=== PATIENT | female | born 1955 | race Caucasian/White ===

== ENCOUNTER 2020-01-29 18:25 | Emergency (ER) | payer BC, SELFPAY ==
[2020-01-29 19:05] VITALS: BP 175/85; PULSE 97; RESP 18; TEMP 36.6; O2SAT 97; BMI 35.4
--- NOTE | 2020-01-29 19:17 | DI.RAD.S_ITS ---
PROCEDURE: XR FOREARM RT 2V INDICATIONS: Fall TECHNIQUE: 2 views of the forearm were acquired. COMPARISON: None. FINDINGS: Bones: No dislocations. No suspicious bony lesions. There is a distal radius Colles' fracture with dorsal angulation and intra-articular extension, with an additional fracture across the base of the ulnar styloid process. Soft tissues: No suspicious soft tissue calcifications or masses. IMPRESSION: Distal radius and ulnar fractures as discussed with significant dorsal angulation and intra-articular comminution involving the distal radius. Dictated by: Turner Panda M.D. on 01/29/2020 at 20:03 Approved by: Turner Panda M.D. on 01/29/2020 at 20:04
--- NOTE | 2020-01-29 19:17 | DI.RAD.S_ITS ---
PROCEDURE: XR WRIST LT MIN 3V INDICATIONS: Fall TECHNIQUE: 4 views of the wrist were acquired. COMPARISON: [facility], CR, XR FOREARM LT 2V, 01/29/2020, 19:11. FINDINGS: Bones: No dislocations. No suspicious bony lesions. There is a comminuted intra-articular fracture involving the distal radius, with dorsal angulation at the fracture planes. Additionally a fracture across the base of the ulnar styloid process is identified. Scaphoid view: No trauma to the scaphoid found. Soft tissues: No suspicious soft tissue calcifications. IMPRESSION: No scaphoid fracture found. Distal radius and ulna fractures as discussed, with significant dorsal angulation of the intra-articular comminuted distal radius fracture margins. Dictated by: Turner Panda M.D. on 01/29/2020 at 20:04 Approved by: Turner Panda M.D. on 01/29/2020 at 20:05
[2020-01-29 20:36] VITALS: BP 187/79; PULSE 104; RESP 18; O2SAT 100
--- NOTE | 2020-01-29 22:19 | ED_ITS ---
HPI - Extremity Injury (Upper) <KATERYNA Weber - Last Filed: 01/29/20 22:30> General Chief Complaint: Extremity Injury, Upper Stated Complaint: Fell, Thinks Broken Left Arm Time Seen by Provider: 01/29/20 21:32 Source: patient Mode of arrival: Ambulatory Limitations: no limitations History of Present Illness HPI narrative: The patient is a 64-year-old female nonsmoker who presents with a chief complaint of a ground level fall with a FOOSH injury to her left arm. She is right-hand dominant. She states she fell on an outstretched hand. Denies any her head, any neck or back pain or any other injuries. She states that her pain is well controlled. She has not taken anything for pain. She has applied ice and placed herself in a sling. She denies any previous injuries to her left hand. She states she has good range of motion and that the only thing that hurts is her left forearm Related Data Allergies Allergy/AdvReac Type Severity Reaction Status Date / Time No Known Drug Allergies Allergy Verified 01/29/20 19:10 Review of Systems <KATERYNA Weber - Last Filed: 01/29/20 22:30> Review of Systems Narrative: GENERAL: Denies chills, fatigue, malaise, fever, sweats. HEENT: Denies sinus pain, ear pain, sore throat, difficulty swallowing, dizziness. RESPIRATORY: Denies dyspnea, cough, wheezing, hemoptysis, sputum. CARDIOVASCULAR: Denies chest pain, palpitations, orthopnea, edema, GASTROINTESTINAL: Denies nausea, vomiting, abdominal pain, diarrhea, constipation, melena. : Denies dysuria, frequency, incontinence, hematuria, urinary retention. MUSCULOSKELETAL: See HPI SKIN: Denies rash, skin lesions, or other NEUROLOGIC: Denies weakness, headache, numbness, change in speech, confusion, seizures, incoordination. PSYCHIATRIC: No concerning psychosocial issues. 12 point review of systems is negative except for those stated above Patient History <KATERYNA Weber - Last Filed: 01/29/20 22:30> Social History Smoking Status: Never smoker Smoking Status: Never smoker alcohol intake frequency: 0-2 drinks per day Substance Use Type: does not use Exam <KATERYNA Weber - Last Filed: 01/29/20 22:30> Narrative Exam Narrative: GENERAL: This is a well-nourished, well-developed patient, in no acute distress HEAD: Atraumatic. Normocephalic. No temporal or scalp tenderness. EYES: Pupils equal round and reactive. Extraocular motions intact. No scleral icterus. No injection or drainage. ENT: Nose without bleeding, purulent drainage or septal hematoma.e. Airway patent. NECK: Trachea midline. No JVD or lymphadenopathy. Supple, nontender, no meningeal signs. CARDIOVASCULAR: Regular rate and rhythm RESPIRATORY: Clear to auscultation. Breath sounds equal bilaterally. No wheezes, rales, or rhonchi. No cough. No increased respiratory effort. No accessory muscle use GASTROINTESTINAL: Abdomen soft, non-tender, nondistended. No hepato-splenomegaly, or palpable masses. No guarding. EXTREMITIES: Pain to palpation and swelling noted left forearm. Positive left radial pulse. No snuffbox pain to palpation. Able to flex and extend all fingers left hand. Capillary refill less than 2 seconds left hand. BACK: Nontender without deformity or crepitance. No flank tenderness. No pain to CT or L-spine palpation. NEURO: AOx3. SKIN: No rash or erythema on visible skin Initial Vital Signs Initial Vital Signs: Vital Signs Temperature 97.8 F 01/29/20 19:05 Pulse Rate 97 H 01/29/20 19:05 Respiratory Rate 18 01/29/20 19:05 Blood Pressure 175/85 H 01/29/20 19:05 Pulse Oximetry 97 01/29/20 19:05 <Andrés Guillen MD - Last Filed: 01/30/20 03:57> Initial Vital Signs Initial Vital Signs: Vital Signs Temperature 97.8 F 01/29/20 19:05 Pulse Rate 97 H 01/29/20 19:05 Respiratory Rate 18 01/29/20 19:05 Blood Pressure 175/85 H 01/29/20 19:05 Pulse Oximetry 97 01/29/20 19:05 Procedures <KATERYNA Weber - Last Filed: 01/29/20 22:30> Orthopedic Splinting/Casting Injury #1: Side: left Upper Extremity Injury Location: wrist Upper Extremity Immobilizer: sugar tong splint and Gregory wrap Post splinting neuro exam: intact Post splinting vascular exam: intact Placed by: Nursing Scores <KATERYNA Weber - Last Filed: 01/29/20 22:30> GCS [place] coma scale eye opening: Spontaneous Fadia coma scale verbal response: Orientated Fadia coma scale motor response: Obey commands [place] coma scale total score: 15 Nexus Score for C-Spine Focal Neurologic deficit present: No Midline spinal tenderness present: No Altered level of conciousness present: No Intoxication present: No Distracting Injury Present: No Nexus Criteria for C-spine: 0 Course <KATERYNA Weber - Last Filed: 01/29/20 22:30> Orders Ordered: ED Orders 01/29/20 19:17 XR forearm LT 2V Stat XR wrist LT 2V Stat Vital Signs Vital signs: Vital Signs - 8 hr 01/29/20 20:36 01/29/20 22:40 Pulse Rate 104 H 92 H Respiratory Rate 18 16 Blood Pressure 187/79 H 139/75 Pulse Oximetry 100 97 <Andrés Guillen MD - Last Filed: 01/30/20 03:57> Orders Ordered: ED Orders 01/29/20 19:17 XR forearm LT 2V Stat XR wrist LT 2V Stat Vital Signs Vital signs: Vital Signs - 8 hr 01/29/20 20:36 01/29/20 22:40 Pulse Rate 104 H 92 H Respiratory Rate 18 16 Blood Pressure 187/79 H 139/75 Pulse Oximetry 100 97 MDM - Extremity Injury (Upper) <KATERYNA Weber - Last Filed: 01/29/20 22:30> Imaging Data Extremity x-ray #1: Radiologist's Impression: [address] [place] [address] XRay Report Signed Patient: Ivory Owen [facility]#: [id number] : 5Acct:[id number] Age/Sex: 64 / FDate of Service: 01/29/20 Loc: ED Accession Number: [id number] Procedure: XR forearm LT 2V Ordering Provider: Michell Dash PROCEDURE: XR FOREARM RT 2V INDICATIONS: Fall TECHNIQUE: 2 views of the forearm were acquired. COMPARISON: None. FINDINGS: Bones: No dislocations. No suspicious bony lesions. There is a distal radius Colles' fracture with dorsal angulation and intra-articular extension, with an additional fracture across the base of the ulnar styloid process. Soft tissues: No suspicious soft tissue calcifications or masses. IMPRESSION: Distal radius and ulnar fractures as discussed with significant do rsal angulation and intra-articular comminution involving the distal radius. Dictated by: Turner Panda M.D. on 01/29/2020 at 20:03 Approved by: Turner Panda M.D. on 01/29/2020 at 20:04 Extremity x-ray #2: Radiologist's Impression: [address] [place] [id number] XRay Report Signed Patient: Ivory Owen [facility]#: [id number] : 5Acct:[id number] Age/Sex: 64 / FDate of Service: 01/29/20 Loc: ED Accession Number: [id number] Procedure: XR wrist LT 2V Ordering Provider: Michell Dash-ASHUTOSH PROCEDURE: XR WRIST LT MIN 3V INDICATIONS: Fall TECHNIQUE: 4 views of the wrist were acquired. COMPARISON: [facility], , XR FOREARM LT 2V, 01/29/2020, 19:11. FINDINGS: Bones: No dislocations. No suspicious bony lesions. There is a comminuted intra-articular fracture involving the distal radius, with dorsal angulation at the fracture planes. Additionally a fracture across the base of the ulnar styloid process is identified. Scaphoid view: No trauma to the scaphoid found. Soft tissues: No suspicious soft tissue calcifications. IMPRESSION: No scaphoid fracture found. Distal radius and ulna fractures as discussed, with significant dorsal angulation of the intra-articular comminuted distal radius fracture margins. Dictated by: Turner Panda M.D. on 01/29/2020 at 20:04 Approved by: Turner Panda M.D. on 01/29/2020 at 20:[address] [facility] Narrative Medical decision making narrative: The patient is a 64-year-old female who presents with a chief complaint of left forearm pain after a FOOSH injury. She is noted to have a fracture of her distal radius and ulna. After reviewing x- rays with Dr Guillen, patient does not need to be reduced as per Dr Guillen any to be placed in a sugar-tong splint. This was done. The patient declined any pain medication throughout her stay in the emergency department. She is neurovascularly intact. I discussed at length rest ice compression elevation, coming back to the emergency department for any acute concerns and follow-up with [facility]. Patient has no questions or concerns upon discharge and states understanding return precautions as well as follow-up care. Discharge Plan Departure Patient Disposition: Home Clinical Impression: Colles' fracture of left radius Qualifiers: Encounter type: initial encounter Fracture type: closed Qualified Code(s): S52.532A - Colles' fracture of left radius, initial encounter for closed fracture Closed fracture of styloid process of left ulna Qualifiers: Encounter type: initial encounter Fracture alignment: nondisplaced Qualified Code(s): S52.615A - Nondisplaced fracture of left ulna styloid process, initial encounter for closed fracture Discharge Date/Time: 01/29/20 23:04 Instructions: How to Use a Sling, DI for Forearm Fracture, How To Perform RICE (Rest, Ice, Compress, Elevate), DI for Distal Radius Fracture Activity Restrictions/Additional Instructions: Thank you for trusting us with your care today. Your x-ray showed fractures of both bones in your forearm. We have placed you in a splint. Please use rest ice compression elevation as well as [id number] pain medications as needed and able as you have declined prescription pain medicine. Please follow-up with primary care provider as well as [facility]. Please come back to the emergency department for any acute concerns Referrals: [facility] [Provider Group] [facility] Resources [Outside] Jose Osullivan MD [Primary Care Provider] -
[2020-01-29 22:40] VITALS: BP 139/75; PULSE 92; RESP 16; RESP 17; O2SAT 100; O2SAT 97
== END 2020-01-29 23:04 | disposition home or self-care (01) ==
PROVIDERS: Emergency Provider Nurse Practitioner Family; Family Provider Specialist; PCP Specialist
DX: S52.532A Colles' fracture of left radius, initial encounter for closed fracture (principal); S52.615A Nondisplaced fracture of left ulna styloid process, initial encounter for closed fracture; W19.XXXA Unspecified fall, initial encounter
CPT/HCPCS: 29505; 73090; 73100; 99283